=== PATIENT | male | born 1955 | race Caucasian/White ===

== ENCOUNTER 2024-07-08 05:43 | Outpatient (CLI) | payer MEDICARE, BC | END 2024-07-08 23:59 | disposition home or self-care (01) | LOC: MRI02 05:43 | PROVIDERS: ATTEND Physician Assistant Surgical | DX: M17.11 Unilateral primary osteoarthritis, right knee (principal); M94.261 Chondromalacia, right knee; M25.561 Pain in right knee | CPT/HCPCS: 73721 ==